=== PATIENT | male | born 1945 | race Caucasian/White ===

== ENCOUNTER 2017-12-26 07:00 | Outpatient (CLI) | payer MEDICARE | END 2017-12-26 07:01 | disposition home or self-care (01) | LOC: BICULT 07:00 | PROVIDERS: ATTEND Internal Medicine Cardiovascular Disease | DX: E04.1 Nontoxic single thyroid nodule (principal) | CPT/HCPCS: 36415; 76536; 84436; 84443; 84479 ==

== ENCOUNTER 2018-11-07 09:15 | Outpatient (CLI) | payer MEDICARE ==
--- NOTE | 2018-11-07 14:49 | ULT ---
EXAM: US Thyroid STANDARD PROVIDED CLINICAL HISTORY: Thyroid nodule COMPARISON: 12/26/2017 FINDINGS: The right lobe of the thyroid gland measures 4.6 cm x 1.5 cm x 1.8 cm with the left lobe measuring 4 cm x 1.6 cm x 1.3 cm. The thyroid isthmus is mildly thickened measuring 0.5 cm in AP dimensions. Again noted is the dominant predominantly isoechoic nodule in the inferior right lobe of the thyroid gland which measures 1.6 cm x 0.9 cm x 1.3 cm with prior obtained measurements of 1.7 cm x 0.8 cm x 0.8 cm. A small 0.4 cm hypoechoic nodule is again seen in the midportion left lobe of the thyroid gland uncha nged in size. Few punctate echogenic foci are seen in the nodule. No new thyroid nodule is seen in either lobe of the thyroid gland. IMPRESSION: 1. TI-RADS level 3 regarding the dominant nodule right lobe of the thyroid gland. Mildly suspicious f inding. Continued follow-up is recommended. 2. TI-RADS level 5 regarding the small less than 5 mm nodule left lobe of the thyroid gland. Highly s uspicious finding. However, due to size characteristics this does not meet criteria for fine-needle aspiration or follow-up evaluation. However, given the recommendation for follow-up of the nodule in the right lobe of thyroid gland, this can be reevaluated on follow-up exam.
== END 2018-11-07 09:16 | disposition home or self-care (01) ==
LOC: BICULT 09:15
PROVIDERS: ATTEND Internal Medicine Cardiovascular Disease
DX: E04.2 Nontoxic multinodular goiter (principal)
CPT/HCPCS: 76536

== ENCOUNTER 2021-12-27 07:52 | Outpatient (CLI) | payer MEDICARE | END 2021-12-27 07:53 | disposition home or self-care (01) | LOC: RAD 07:52 | PROVIDERS: ATTEND Internal Medicine Critical Care Medicine | DX: R06.00 Dyspnea, unspecified (principal); J98.11 Atelectasis; J98.4 Other disorders of lung | CPT/HCPCS: 71046 ==

== ENCOUNTER 2022-02-22 09:35 | Outpatient (CLI) | payer MEDICARE | END 2022-02-22 09:36 | disposition home or self-care (01) | LOC: BICCT 09:35 | PROVIDERS: ATTEND Internal Medicine Critical Care Medicine | DX: J90 Pleural effusion, not elsewhere classified (principal) | CPT/HCPCS: 71250 ==

== ENCOUNTER 2022-11-01 09:52 | Outpatient (CLI) | payer MEDICARE | END 2022-11-01 09:53 | disposition home or self-care (01) | LOC: BICRAD 09:52 | PROVIDERS: ATTEND Family Medicine | DX: R07.89 Other chest pain (principal) | CPT/HCPCS: 71111 ==

== ENCOUNTER 2024-03-06 07:29 | Outpatient (CLI) | payer MEDICARE | END 2024-03-06 07:30 | disposition home or self-care (01) | LOC: BICCT 07:29 | PROVIDERS: ATTEND Family Medicine | DX: R06.09 Other forms of dyspnea (principal); J98.4 Other disorders of lung; R91.1 Solitary pulmonary nodule | CPT/HCPCS: 71250 ==